=== PATIENT | female | born 1980 | race Two or more races ===

== ENCOUNTER 2020-06-24 13:35 | Emergency (ER) | payer BC ==
[~2020-06-24] VITALS: Ht 157.5 cm; Wt 122.5 kg
--- NOTE | 2020-06-24 13:53 | NUR ---
BIBS FROM HOME TO ER [facility]. NOT IN RESP DISTRESS. AAXO4, AMBULATORY WITH CRUTCHES. L ANKLE PAIN S/P INVERSION LAST Wednesday05/25/20. PAIN IS 5/10 AGGREVATED BY MOVEMENT. PT IS ON L ANKLE BOOT. ROM LIMITED D/T PAIN. AWAITING MD FOR EVAL.
[2020-06-24] MEDS ORDERED: IBUP-1955 PO (14:40)
--- NOTE | 2020-06-24 14:45 | NUR ---
ALREADY HAVE AN ANKLE BOOT AND CRUTCHES THAT SHE HAD ON PRIOR TO ARRIVAL. PT IS INSTRUCTED WEIGHT BEARING TOLERATED.
--- NOTE | 2020-06-24 15:04 | NUR ---
Patient discharged to home in stable condition. Written and verbal after care instructions given. Patient verbalizes understanding of instruction. Pt ambulatory with a steady gait w/ crutches
[2020-06-24 15:11] VITALS: BP 157/88
== END 2020-06-24 15:11 | disposition home or self-care (01) ==
LOC: ER 13:40
DX: S82.832A Other fracture of upper and lower end of left fibula, initial encounter for closed fracture (principal); Z79.899 Other long term (current) drug therapy; X50.1XXA Overexertion from prolonged static or awkward postures, initial encounter; Y93.89 Activity, other specified; Y92.89 Other specified places as the place of occurrence of the external cause; Y99.8 Other external cause status
CPT/HCPCS: 73610-TC